=== PATIENT | male | born 1995 | race African-American/Black ===

== ENCOUNTER 2018-09-05 11:49 | Emergency (ER) | payer SELFPAY ==
[~2018-09-05] VITALS: Ht 193 cm; Wt 121.0 kg
[2018-09-05 12:56] VITALS: BP 163/98
[2018-09-05] MEDS ORDERED: IBUPROFEN 600MG TABLET PO ONE (13:00)
== END 2018-09-05 16:05 | disposition home or self-care (01) ==
LOC: ER 11:49
DX: S83.8X1A Sprain of other specified parts of right knee, initial encounter (principal); M25.561 Pain in right knee; F41.9 Anxiety disorder, unspecified; W01.0XXA Fall on same level from slipping, tripping and stumbling without subsequent striking against object, initial encounter; X50.1XXA Overexertion from prolonged static or awkward postures, initial encounter; Y93.9 Activity, unspecified; Y92.9 Unspecified place or not applicable
CPT/HCPCS: 73560; 99283